=== PATIENT | female | born 2000 | race Caucasian/White ===

== ENCOUNTER 2018-03-29 20:38 | Emergency (ER) | payer SELFPAY ==
[2018-03-29 20:58] VITALS: BP 137/86
--- NOTE | 2018-03-29 21:18 | UC ---
Complaint Female HPI - HPI Summary HPI Summary: C/O sores on vagina x 4 days with burning sensation. - History Of Current Complaint Chief Complaint: [facility] Stated Complaint: PERSONAL Time Seen by Provider: 03/29/18 21:06 Hx Obtained From: Patient Hx Last Menstrual Period: 03/23/18 ?: No Onset/Duration: Sudden Onset, Lasting Days - 4, Still Present Timing: Constant Severity Initially: Moderate Severity Currently: Severe Pain Intensity: 8 Character: Burning Aggravating Factor(s): Movement, Urination Alleviating Factor(s): Nothing Associated Signs And Symptoms: Positive: Genital Blisters. Negative: Fever, Back Pain, Vaginal Bleeding/Discharge, Vaginal Discharge - Allergies/Home Medications Allergies/Adverse Reactions: Allergies Allergy/AdvReac Type Severity Reaction Status Date / Time bee venom protein (honey bee) Allergy Swelling Verified 03/29/18 20:51 Of Face,Lips,& Throat Penicillins Allergy Difficulty Verified 03/29/18 20:51 Breathing Home Medications: Home Medications Norgestimate-Ethinyl Estradiol [Sprintec 28 Day Tablet] 1 tab PO DAILY 03/29/18 [History Confirmed 03/29/18] PMH/Surg Hx/FS Hx/Imm Hx Previously Healthy: Yes - Surgical History Surgical History: Yes Surgery Procedure, Year, and Place: Appendectomy, 2009, [facility]. T&A, 2011, [facility] [place] - Family History Known Family History: Negative: Diabetes - Social History Occupation: Student Alcohol Use: None Substance Use Type: None Smoking Status (MU): Never Smoked Tobacco - Immunization History Most Recent Influenza Vaccination: [id number] Vaccination Up to Date: Yes Review of Systems All Other Systems Reviewed And Are Negative: Yes Skin: Positive: Rash - on the perineum Genitourinary: Positive: Ulceration/Lesion Is Patient Immunocompromised?: No Physical Exam Triage Information Reviewed: Yes Appearance: Well-Appearing, Well-Nourished, Pain Distress Vital Signs: Initial Vital Signs Temp 97.3 F 03/29/18 20:54 Pulse 106 03/29/18 20:54 Resp 16 03/29/18 20:54 BP 137/86 03/29/18 20:54 Pulse Ox 100 03/29/18 20:54 Vital Signs Reviewed: Yes Eyes: Positive: Conjunctiva Inflamed - with crying Neck exam: Normal Respiratory Exam: Normal Cardiovascular Exam: Normal Abdomen Description: Positive: Nontender, No Organomegaly, Soft Pelvic Exam: Positive: Lesions - ulcers up and down the labia, on the right> left Musculoskeletal Exam: Normal Neurological Exam: Normal Psychological Exam: Normal Skin Exam: Normal Complaint Female Dx - Differential Dx/Diagnosis Differential Diagnosis/HQI/PQRI: Appendicitis, Sexually Transmitted Disease, Urinary Tract Infection Provider Diagnosis: Herpes simplex Discharge - Sign-Out/Discharge Documenting (check all that apply): Patient Departure All imaging exams completed and their final reports reviewed: No Studies - Discharge Plan Condition: Stable Disposition: HOME Prescriptions: ValACYclovir (*) [Valtrex 500 mg (*)] 500 mg PO BID #10 tab Patient Education Materials: Genital Herpes Simplex (ED), Valacyclovir (By mouth) Referrals: No Primary Care Phys,NOPCP [Primary Care Provider] - - Billing Disposition and Condition Condition: STABLE Disposition: Home
--- NOTE | 2018-04-01 07:18 | UC ---
- Progress Note Progress Note: please call the pt. with her lab test + BV will ERx Flagyl 500 mg bid x 7 days cont. with Valtrex follow up with her pcp if not improving Course/Dx - Diagnoses Provider Diagnoses: Herpes simplex Discharge - Sign-Out/Discharge Documenting (check all that apply): Patient Departure All imaging exams completed and their final reports reviewed: No Studies - Discharge Plan Condition: Stable Disposition: HOME Prescriptions: metroNIDAZOLE [Flagyl 500 MG TAB] 500 mg PO Q12HR #14 tab ValACYclovir (*) [Valtrex 500 mg (*)] 500 mg PO BID #10 tab Patient Education Materials: Valacyclovir (By mouth), Genital Herpes Simplex ( ED) Referrals: No Primary Care Phys,NOPCP [Primary Care Provider] - - Billing Disposition and Condition Condition: STABLE Disposition: Home
[2018-04-02 11:51] LABS: Herpes Simplex Virus I IgG AB Negative (Negative); Herpes Simplex Virus II IgG AB Negative (Negative)
[2018-04-02 19:46] LABS: HSV 1 PCR Negative (Negative)
== END 2018-03-29 21:59 | disposition home or self-care (01) ==
LOC: UCCORT 20:38
DX: B00.9 Herpesviral infection, unspecified (principal); Z88.0 Allergy status to penicillin
CPT/HCPCS: 86694; 86695; 86696; 87480; 87491; 87510; 87529; 87591; 87660; 99212; G0463